=== PATIENT | female | born 1980 | race Caucasian/White ===

== ENCOUNTER 2020-08-05 06:11 | Day surgery (SDC) | payer OTHER ==
[~2020-08-05] VITALS: Ht 170.2 cm; Wt 59.0 kg
[~2020-08-05 06:11] MED LIST: AMOXICILLIN 50500 MG PO; ASA81BEC PO; BACLOFEN 10MG T10 MG PO; LAXATIVE5 M1 PO; LEXAPRO5 MG PO; REMERON45 M1 PO; TEGRETOL XR400 MG PO; ZONISAMIDE 100100 M1 PO
[2020-08-05 06:59] VITALS: BP 103/60
--- NOTE | 2020-08-05 07:09 | EKG ---
[address] [place] [address] ELECTROCARDIOGRAM REPORT Name: JULIO AMBRIZ Room #: 150-2 [facility]#: [id number] Admission: 08/05/20 Attend Phys: Brandon Jarvis MD Discharge: Date of : 84 Report #: [id number] [facility] Test Date: 2020-08-05 Test Time: 06:59:28 Pat Name: JULIO AMBRIZ Department: Room: [facility] Gender: F [employer]: FLIP : 1980 Requested By: Brandon Jarvis Order Number: [id number] : Jaime Brown Measurements Intervals [place] Rate: 63 P: 80 IA: 166 QRS: 79 QRSD: 97 T: 53 QT: 423 QTc: 434 Interpretive Statements Sinus rhythm Baseline wander in lead(s) V4 No previous ECG available for comparison Electronically Signed On 08-05-2020 7:09:36 [employer] by Jaime Brown [email or web address] <ELECTRONICALLY SIGNED> By: Jaime Brown MD, [facility] 08/05/20 [phone] Jaime Brown MD, FACC /EPI
--- NOTE | 2020-08-09 14:41 | O ---
[address] [address] OPERATIVE REPORT Name: JULIO AMBRIZ Room #: DEP [facility].#: [id number] Admission: 08/05/20 Attend Phys: Brandon Jarvis MD Discharge: 08/05/20 Date of : 84 Report #: [id number] THIS REPORT FOR: cc: SHON VILLEGAS Physician not on staff Brandon Jarvis MD ~ DATE OF SERVICE: 08/05/2020 SERVICE: Orthopedics. FACILITY: [facility]. SURGEON: Brandon Jarvis MD MULTIPLE RESAW OPERATOR: Cassandra Reich NP. INDICATION FOR MULTIPLE RESAW OPERATOR: Extremity positioning, suture management, arthroscope management, assistance with repair. PREOPERATIVE DIAGNOSES: 1. Left hip pain. 2. Left hip femoroacetabular impingement. 3. Left hip labral tear. 4. Right-sided hemiplegia. POSTOPERATIVE DIAGNOSES: 1. Left hip pain. 2. Left hip femoroacetabular impingement. 3. Left hip labral tear. 4. Left hip acetabular chondromalacia. 5. Right-sided hemiplegia. PROCEDURES: 1. Left hip arthroscopic labral repair. 2. Left hip arthroscopic Cam osteochondroplasty. 3. Left hip arthroscopic subspine decompression. 4. Left hip acetabular chondroplasty. COMPLICATIONS: None. SPECIMENS: None. FINDINGS: 1. Intact femoral head articular cartilage. There was partial thickness chondromalacia of the acetabular cartilage region at the chondral labral [address] [address] OPERATIVE REPORT Name: JULIO AMBRIZ Room #: DEP [facility]#: [id number] Admission: 08/05/20 Attend Phys: Brandon Jarvis MD Discharge: 08/05/20 Date of : 84 Report #: [id number] junction secondary to the Cam impingement. 2. 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 3. Acetabular labral repair with Nahum CinchLock suture anchor x 3. 4. Capsular repair with a #2 Vicryl x 4. HISTORY: The patient is a young lady who has a history of a cerebrovascular accident in her 20s who has a right hemiplegia subsequently and had acute onset of left hip pain following the accident earlier in 2019. She was treated conservatively with rest, activity modifications, physical therapy, oral medicines modalities and she had incomplete relief. She had insufficient pain relief with intraarticular injection and had imaging consistent with femoroacetabular impingement with an increased alpha angle as well as a small crossover sign suggestive of a prominent anterior inferior iliac spine. She had a labral tear on MRI. No significant signs of articular cartilage pathology. After failing conservative measures, she was indicated for surgical treatment. The risks, benefits, alternatives, and indication of surgery discussed with her in detail. Risks include but not limited to pain, bleeding, infection, injury nerves or blood vessels, persistent pain despite surgical intervention, failure of any repairs, progression of preexisting chondral injury, stiffness, need for further surgery as well as complications related to anesthesia up to and including mortality. Despite the risks, she wished to proceed. PROCEDURE IN DETAIL: After left lower extremity was correctly identified in the preoperative holding as operative extremity, the patient was taken to the operating room where general anesthesia was induced without complication. She was padded appropriately. Prophylactic antibiotics were administered at appropriate time. Note that this patient did not receive preoperative nerve block, so as to avoid any potential risk of long-term weakness complication. Left hip femoral head and neck junction was evaluated under fluoroscopy to identify the extent of the Cam deformity and then the left hip was prepped and draped in standard sterile fashion. Timeout procedure performed. Traction was applied, standard anterolateral viewing portal was established under fluoroscopy and then anteromedial working portal under arthroscopic and fluoroscopic visualization. There was synovitis present as well as some erythema of the capsule, which will be the indications for continuous passive motion machine usage postoperatively, which is helpful to reduce the risk of scarring and adhesions as these can be reasons for reoperation in this patient population. Transverse capsulotomy was performed and then a limited synovectomy was performed. There was significant fraying at the chondral labral junction as well as of the superficial fibers of the labrum, but the labral tissue itself was of good quality and ultimately held sutures well. The capsule was reflected off the dorsal side of the labrum. The shaver and the cautery were used to dissect out the prominent anterior inferior iliac spine where there was a dense segment of bone that could be visualized directly arthroscopically as well as [address] [address] OPERATIVE REPORT Name: JULIO AMBRIZ Room #: DEP [facility] [place]#: [id number] Admission: 08/05/20 Attend Phys: Brandon Jarvis MD Discharge: 08/05/20 Date of : 84 Report #: [id number] confirmed with the fluoroscopy. The bur was used to perform a subspine decompression. The disks in the similar fashion and then we proceeded with preparation for labral repair. This additional subspine decompression work was required to address the extraarticular component of her impingement. The bur was used to gently decorticate the acetabular rim to create a fresh bleeding surface for labral repair and then a total of 3 Geronimo CinchLock suture anchors were utilized to perform labral repair. This significantly improved the labral stability. We reduced it to its anatomic position and minimize any chondral wave pathology. Shaver was used to complete the limited chondroplasty as well as debriding residual frayed tissue on the superficial aspect of the articular side of the labrum. Scope was then placed anteriorly, a working portal made laterally. We confirmed that no further labral repair was necessary and then let traction down and flexed the hip and then turned attention towards the peripheral compartment. A transverse capsulotomy was extended down the neck in a T-fashion and the bur was used to perform a Cam osteoplasty in standard fashion. Instruments were removed. C-arm was brought in to assess the Cam resection, identified some additional bone that need to be resected, placed the instruments back in the hip, completed the Cam osteoplasty and then removed the instruments once more, brought C-arm in and took final x-rays after adequate Cam osteoplasty had been confirmed. The instruments were placed back in the hip. The bony debris was lavaged out of the hip and the T-shaped capsulotomy was closed with total of 4 #2 Vicryl sutures and then the instruments were removed. Portal sites were closed. Sterile dressing was applied. The patient was awakened from anesthesia and taken to recovery room in stable condition. No complications. All counts were correct. <ELECTRONICALLY SIGNED> By: Brandon Jarvis MD 08/09/20 [id number] Brandon Jarvis MD /nt
== END 2020-08-05 11:12 | disposition home or self-care (01) ==
LOC: TBA 06:11 → OR 06:11 → TBA 06:13 → OR 09:14
PROVIDERS: ATTEND Orthopaedic Surgery Sports Medicine
DX: M25.552 Pain in left hip (principal); M25.852 Other specified joint disorders, left hip; S73.102A Unspecified sprain of left hip, initial encounter; M94.252 Chondromalacia, left hip; G81.94 Hemiplegia, unspecified affecting left nondominant side; F41.9 Anxiety disorder, unspecified; F17.210 Nicotine dependence, cigarettes, uncomplicated; Z98.890 Other specified postprocedural states; Z79.899 Other long term (current) drug therapy; Z86.73 Personal history of transient ischemic attack (TIA), and cerebral infarction without residual deficits; Z90.49 Acquired absence of other specified parts of digestive tract; Z87.19 Personal history of other diseases of the digestive system; Z79.01 Long term (current) use of anticoagulants; Z95.2 Presence of prosthetic heart valve; X58.XXXA Exposure to other specified factors, initial encounter; Y93.89 Activity, other specified; Y92.89 Other specified places as the place of occurrence of the external cause; Y99.8 Other external cause status
CPT/HCPCS: 50010; 50101; 50386; 51320; 51538; 52001; 52282; 52304; 52313; 56524; 56527; 57092; 57103; 58273; 58274; 58557; 58558; 58559; 58561; 58562; 58563; 58564; 62110; 62900; 70005